=== PATIENT | male | born 1995 | race Caucasian/White ===

== ENCOUNTER → 2019-08-08 | Outpatient (CLI) | payer BC ==
--- NOTE | 2019-08-09 07:48 | US ---
EXAMINATION TYPE: US scrotum with doppler. Grayscale and color Doppler Duplex imaging performed of t he scrotum. DATE OF EXAM: 08/08/2019 COMPARISON: NONE CLINICAL HISTORY: N50.9 Disorder of male genital organ. enlarged left testicle and scrotum is very te nder, h/o hydrocele and fluid removal EXAM MEASUREMENTS: TESTICLES: Right Testicle: 4.5 x 3.0 x 2.7 cm Left Testicle: 3.7 x 2.8 x 2.3 cm EPIDIDYMIS HEAD: Right Epididymis: 0.9 cm Left Epididymis: 1.1 cm Doppler performed to assess for testicular vascularity; good bilateral color flow and waveforms are s een. There is no evidence of testicular torsion. Presence of hydroceles: trace amount around right mid scrotum, larger fluid collection seen lateral to left testicle measuring 2.5 cm. Presence of varicoceles: no Hyperechogenicity is seen midline between the testes in the area the patient's pain. IMPRESSION: 1. Trace right hydrocele and small uncomplicated fluid collection in the subcutaneous tissues left la teral to the testicle that could represent a small seroma measuring approximately 2.5 cm. 2. In the area the patient's pain the subcutaneous tissues at midline are hyperechoic possibly from p hlegmonous changes. No fluid collection to suggest abscess at this location nor edema.
== END ==
LOC: RADUSWWP 16:00
PROVIDERS: ATTEND Family Medicine
DX: R93.89 Abnormal findings on diagnostic imaging of other specified body structures (principal)
CPT/HCPCS: 76870; 93975

== ENCOUNTER → 2020-10-09 | Outpatient (CLI) | payer BC ==
--- NOTE | 2020-10-09 16:22 | US ---
EXAMINATION TYPE: US scrotum with doppler. Grayscale and color Doppler Duplex imaging performed of t javad scrotum. DATE OF EXAM: 10/09/2020 COMPARISON: US 2019 CLINICAL HISTORY: N43.3 hydrocele. Left testicular pain EXAM MEASUREMENTS: TESTICLES: Right Testicle: 4.5 x 2.2 x 2.7 cm Left Testicle: 4.5 x 2.5 x 3.2 cm EPIDIDYMIS HEAD: Right Epididymis: 0.7 x 1.3 x 0.9 cm Left Epididymis: 0.8 x 1.2 x 1.8 cm Doppler performed to assess for testicular vascularity; good bilateral color flow and waveforms are s een. Presence of hydroceles: right 3.0cm, left 3.8cm Presence of varicoceles: no Left epididymal head: 0.7 x 0.8 x 0.9cm hyperechoic area seen Satisfactory blood flow to both testicles. Symmetric flow noted on comparison view. IMPRESSION: No increased or decreased blood flow to left testicle versus the opposite right side. Sma ll bilateral scrotal fluid collections or hydroceles. Persistent oval left scrotal fluid collection l ateral to the testicle though decreased in size from prior.
== END | disposition home or self-care (01) ==
LOC: RADUSWWP 14:28
PROVIDERS: ATTEND Urology
DX: N43.3 Hydrocele, unspecified (principal)
CPT/HCPCS: 76870; 93975

== ENCOUNTER 2025-04-15 03:12 | Emergency (ER) | payer BC ==
[2025-04-15 03:16] VITALS: TEMP 97.5
[2025-04-15 04:17] LABS: Basophils # (A) 0.02 10*3/uL (0.00-0.10); Basophils % (A) 0.2 %; Eosinophils # (A) 0.03 10*3/uL (0.04-0.35); Eosinophils % (A) 0.3 %; HCT 46.4 % (39.6-50.0); HGB 16.1 g/dL (13.0-17.0); Lymphocytes # (A) 0.35 10*3/uL (0.90-5.00); Lymphocytes % (A) 3.2 %; MCH 29.8 pg (27.0-32.0); MCHC 34.7 g/dL (32.0-37.0); MCV 85.8 fL (80.0-97.0); Mean Platelet Volume 9.9 fL (9.5-12.2); Monocytes # (A) 0.58 10*3/uL (0.20-1.00); Monocytes % (A) 5.4 %; Neutrophils # (A) 9.83 10*3/uL (1.80-7.70); Neutrophils % (A) 90.6 %; Platelet Count 252 10*3/uL (140-440); RBC 5.41 10*6/uL (4.40-5.60); RDW 11.9 % (11.5-14.5); WBC 10.84 10*3/uL (4.50-10.00)
--- NOTE | 2025-04-15 04:21 | ED ---
General Adult HPI - General Chief complaint: Nausea/Vomiting/Diarrhea Stated complaint: NVD Time Seen by Provider: 04/15/25 03:18 Source: patient Mode of arrival: ambulatory Limitations: no limitations - History of Present Illness Initial comments: Patient is a previously healthy 30-year-old gentleman presenting today for nausea vomiting and diarrhea. Patient states symptoms have been ongoing for about 1 day. Has had multiple episodes of nonbloody nonbilious emesis and nonbloody, nonmelanotic loose stools. He has not been able to keep down any flu ids and endorses feeling weak and lightheaded. Endorses mild upper abdominal pain. Otherwise denies chest pain. Denies fevers, endorses chills. No prior abdominal surgeries. Denies dysuria or hematuria. Denies testicular pain or swelling. Denies alcohol or marijuana use. - Related Data Allergies Allergy/AdvReac Type Severity Reaction Status Date / Time No Known Allergies Allergy Verified 04/15/25 03:15 Review of Systems ROS Statement: Those systems with pertinent positive or pertinent negative responses have been documented in the HPI. ROS Other: All systems not noted in ROS Statement are negative. Past Medical History Past Medical History: No Reported History History of Any Multi-Drug Resistant Organisms: None Reported Past Surgical History: No Surgical Hx Reported Past Psychological History: No Psychological Hx Reported Smoking Status: Never smoker Past Alcohol Use History: None Reported Past Drug Use History: Marijuana General Exam - General Exam Comments Initial Comments: PE: CONSTITUTIONAL: No apparent distress, somewhat ill-appearing though nontoxic SKIN: Warm, dry, no jaundice, hives or petechiae EYES: Pupils are equally round, extraocular movements intact without nystagmus, clear conjunctiva, non-icteric sclera HENT: Normocephalic, atraumatic, dry mucus membranes, oropharynx clear without exudates NECK: , Full range of motion, normal appearance PULMONARY: Clear to auscultation without wheezes, rhonchi, or rales, normal excursion, no accessory muscle use and no stridor CARDIOVASCULAR: Regular rate, rhythm, normal S1 and S2. No appreciated murmurs, rubs or gallops. Strong radial pulses with intact distal perfusion. No lower extremity edema GASTROINTESTINAL: Soft, active bowel sounds throughout, mild right upper quadrant tenderness to palpation without guarding, negative Palacio sign non- distended, no palpable masses, no rebound or guarding. No hepatosplenomegaly GENITOURINARY: MUSCULOSKELETAL: Extremities have no gross deformity, no edema, redness, or swelling. NEUROLOGIC:_a/o x 3, GCS 15, normal mentation and speech. Moves all extremities x 4 without motor or sensory deficit PSYCHIATRIC:_normal mood and affect, thought process is clear and linear Limitations: no limitations Course Vital Signs 04/15/25 04/15/25 04/15/25 03:13 04:46 06:35 Temperature 97.5 F L Pulse Rate 71 71 84 Respiratory 18 18 16 Rate Blood Pressure 124/79 111/61 122/76 O2 Sat by Pulse 100 97 100 Oximetry 04/15/25 07:53 Temperature Pulse Rate 86 Respiratory 16 Rate Blood Pressure 130/68 O2 Sat by Pulse 98 Oximetry Medical Decision Making - Medical Decision Making Was pt. sent in by a medical professional or institution (, PA, BOOK SALESMAN, urgent care, hospital, or residential...) When possible be specific @ -No Did you speak to anyone other than the patient for history (EMS, parent, family, police, friend...)? What history was obtained from this source @ -No Did you review nursing and triage notes (agree or disagree)? Why? @ -I reviewed and agree with nursing and triage notes-patient is here for vomiting and diarrhea Were old charts reviewed (outside hosp., previous admission, EMS record, old EKG, old radiological studies, urgent care reports/EKG's, residential records)? Report findings @ -Medical records reviewed Differential Diagnosis (chest pain, altered mental status, abdominal pain women, abdominal pain men, vaginal bleeding, weakness, fever, dyspnea, syncope, headache, dizziness, GI bleed, back pain, seizure, CVA, palpatations, mental health, musculoskeletal)? Differential Abdominal Pain Men: Appendicitis, cholecystitis, diverticulosis, pancreatitis, hepatitis, UTI, gastroenteritis, partial bowel obstruction, inflammatory bowel, peptic ulcer disease, this is not meant to be an all-inclusive list EKG interpreted by me (3pts min.). @ -As above X-rays interpreted by me (1pt min.). @Personally reviewed x-ray KUB, I see no evidence of volvulus or obstruction, I agree with radiologist interpretation CT interpreted by me (1pt min.). @ -None done U/S interpreted by me (1pt. min.). @ -None done What testing was considered but not performed or refused? (CT, X-rays, U/S, labs)? Why? @Ultrasound of the right upper quadrant was considered however had a negative Palacio sign, t bili minimally elevated at 1.7, LFT wnl, symptoms ultimately resolved after IV fluids and nausea medication What meds were considered but not given or refused? Why? @ -None Did you discuss the management of the patient with other professionals (professionals i.e. , PA, BOOK SALESMAN, lab, RT, psych nurse, social studies teacher, senior software architect, teacher, procurement officer, mental health case manager)? Give summary @ -No Was smoking cessation discussed for >3mins.? @ -No Was critical care preformed (if so, how long)? @ -No Were there social determinants of health that impacted care today? How? (Homelessness, low income, unemployed, alcoholism, drug addiction, transportation, low edu. Level, literacy, decrease access to med. care, prison, rehab)? @ -No Was there de-escalation of care discussed even if they declined (Discuss DNR or withdrawal of care, Hospice)? @ -No What co-morbidities impacted this encounter? (DM, HTN, Smoking, COPD, CAD, Cancer, CVA, ARF, Chemo, Hep., AIDS, mental health diagnosis, sleep apnea, morbid obesity)? @ -None Was patient admitted / discharged? Hospital course, mention meds given and route, prescriptions, significant lab abnormalities, going to OR and other pertinent info. @ -Discharged-pleasant 30-year-old gentleman presenting today for 1 day of nausea vomiting and diarrhea. Vital signs stable on arrival. On my assessment patient is somewhat ill-appearing though nontoxic. Dry mucous membranes. Abdominal exam is overall benign with minimal right upper quadrant tenderness palpation and a negative Palacio's sign. Differential diagnosis as noted above, however patient's symptoms and exam are highly consistent with gastroenteritis. Will begin with basic labs, IV fluid boluses, and nausea control, will consider additional imaging if symptoms do not improve or significant lab abnormalities. Labs and imaging reviewed. Patient's labs did show mild hyperglycemia with blood glucose of 174 however negative acetone, anion gap of 18, patient did have 4+ ketones in his urine and elevated specific gravity but negative glucose,I suspect these lab abnormalities are more likely secondary to nausea and vomiting and dehydration, and not reflective of new onset diabetes/DKA. On reassessment patient looks much improved, more well-hydrated and his symptoms have improved. Updated patient to findings and anticipated discharge. He was able to tolerate p.o. fortunato tasha and was comfortable with discharge home at this time. Patient was discharged in stable condition. In my medical judgment there is currently no evidence of an immediate life- threatening or surgical condition. Discharge is therefore indicated at this time. Discharge treatment instructions, follow up instructions, and appropriate emergency department return precautions were discussed with the patient and/or medical decision maker. Patient and/or medical decision maker expressed understanding of and agreed with the treatment plan, follow up instructions, and emergency department return precaution. All patient's and/or medical decision maker's questions were answered. The patient was advised that a small risk still exists that a serious condition could develop and was therefore instructed to return to the ED for any changes in symptoms, persistent symptoms, inability to obtain proper follow-up or for any further concerns. Patient received verbal and written instructions for this condition. Undiagnosed new problem with uncertain prognosis? @ -No Drug Therapy requiring intensive monitoring for toxicity (Heparin, Nitro, Insuli n, Cardizem)? @ -No Were any procedures done? @ -No Diagnosis/symptom? @ Nausea, vomiting and diarrhea, dehydration Acute, or Chronic, or Acute on Chronic? @Acute Uncomplicated (without systemic symptoms) or Complicated (systemic symptoms)? @ complicated Side effects of treatment? @ -No Exacerbation, Progression, or Severe Exacerbation? @ -No Poses a threat to life or bodily function? How? (Chest pain, [place], [place], pneumonia, PE, COPD, DKA, ARF, appy, cholecystitis, CVA, Diverticulitis, Homicidal, Suicidal, threat to staff... and all critical care pts) @ -No - Lab Data Result diagrams: 04/15/25 04:13 04/15/25 04:13 Lab Results 04/15/25 04/15/25 04/15/25 Range/Units 04:13 04:13 04:13 WBC 10.84 H (4.50-10.00) 10*3/uL RBC 5.41 (4.40-5.60) 10*6/uL Hgb 16.1 (13.0-17.0) g/dL Hct 46.4 (39.6-50.0) % MCV 85.8 (80.0-97.0) fL MCH 29.8 (27.0-32.0) pg MCHC 34.7 (32.0-37.0) g/dL Plt Count 252 (140-440) 10*3/uL MPV 9.9 (9.5-12.2) fL Immature Gran % (Auto) 0.3 % Neutrophils % 90.6 % Lymphocytes % 3.2 % Monocytes % 5.4 % Eosinophils % 0.3 % Basophils % 0.2 % Immature Gran # 0.03 (0.00-0.04) 10*3/uL Neutrophils # 9.83 H (1.80-7.70) 10*3/uL Lymphocytes # 0.35 L (0.90-5.00) 10*3/uL Monocytes # 0.58 (0.20-1.00) 10*3/uL Eosinophils # 0.03 L (0.04-0.35) 10*3/uL Basophils # 0.02 (0.00-0.10) 10*3/uL Sodium 138 (137-145) mmol/L Potassium 4.8 (3.5-5.1) mmol/L Chloride 104 (98-107) mmol/L Carbon Dioxide 16 L (22-30) mmol/L Anion Gap 18 mmol/L BUN 23 H (9-20) mg/dL Creatinine 0.94 (0.66-1.25) mg/dL Est GFR (CKD-EPI)AfAm >90 (>60 ml/min/1.73 sqM) Est GFR (CKD-EPI)NonAf >90 (>60 ml/min/1.73 sqM) Glucose 174 H (74-99) mg/dL Calcium 10.2 (8.4-10.2) mg/dL Total Bilirubin 1.7 H (0.2-1.3) mg/dL AST 30 (17-59) U/L ALT 22 (4-49) U/L Alkaline Phosphatase 55 (38-126) U/L Total Protein 9.1 H (6.3-8.2) g/dL Albumin 5.3 H (3.5-5.0) g/dL Lipase 157 (23-300) U/L Urine Color Urine Appearance (Clear) Urine pH (5.0-8.0) Ur Specific [place] (1.001-1.035) Urine Protein (Negative) Urine Glucose (UA) (Negative) Urine Ketones (Negative) Urine Blood (Negative) Urine Nitrite (Negative) Urine Bilirubin (Negative) Urine Urobilinogen (<2.0) mg/dL Ur Leukocyte Esterase (Negative) Acetone, Qual Negative (Negative) Influenza Type A (PCR) (Not Detectd) Influenza Type B (PCR) (Not Detectd) RSV (PCR) (Not Detectd) SARS-CoV-2 (PCR) (Not Detectd) 04/15/25 04/15/25 Range/Units 04:17 05:49 WBC (4.50-10.00) 10*3/uL RBC (4.40-5.60) 10*6/uL Hgb (13.0-17.0) g/dL Hct (39.6-50.0) % MCV (80.0-97.0) fL MCH (27.0-32.0) pg MCHC (32.0-37.0) g/dL Plt Count (140-440) 10*3/uL MPV (9.5-12.2) fL Immature Gran % (Auto) % Neutrophils % % Lymphocytes % % Monocytes % % Eosinophils % % Basophils % % Immature Gran # (0.00-0.04) 10*3/uL Neutrophils # (1.80-7.70) 10*3/uL Lymphocytes # (0.90-5.00) 10*3/uL Monocytes # (0.20-1.00) 10*3/uL Eosinophils # (0.04-0.35) 10*3/uL Basophils # (0.00-0.10) 10*3/uL Sodium (137-145) mmol/L Potassium (3.5-5.1) mmol/L Chloride (98-107) mmol/L Carbon Dioxide (22-30) mmol/L Anion Gap mmol/L BUN (9-20) mg/dL Creatinine (0.66-1.25) mg/dL Est GFR (CKD-EPI)AfAm (>60 ml/min/1.73 sqM) Est GFR (CKD-EPI)NonAf (>60 ml/min/1.73 sqM) Glucose (74-99) mg/dL Calcium (8.4-10.2) mg/dL Total Bilirubin (0.2-1.3) mg/dL AST (17-59) U/L ALT (4-49) U/L Alkaline Phosphatase (38-126) U/L Total Protein (6.3-8.2) g/dL Albumin (3.5-5.0) g/dL Lipase (23-300) U/L Urine Color Yellow Urine Appearance Clear (Clear) Urine pH 5.5 (5.0-8.0) Ur Specific [place] 1.036 H (1.001-1.035) Urine Protein Trace H (Negative) Urine Glucose (UA) Negative (Negative) Urine Ketones 4+ H (Negative) Urine Blood Negative (Negative) Urine Nitrite Negative (Negative) Urine Bilirubin Negative (Negative) Urine Urobilinogen <2.0 (<2.0) mg/dL Ur Leukocyte Esterase Negative (Negative) Acetone, Qual (Negative) Influenza Type A (PCR) Not Detected (Not Detectd) Influenza Type B (PCR) Not Detected (Not Detectd) RSV (PCR) Not Detected (Not Detectd) SARS-CoV-2 (PCR) Not Detected (Not Detectd) Disposition Clinical Impression: Dehydration, Nausea vomiting and diarrhea Disposition: HOME SELF-CARE Condition: Stable Instructions (If sedation given, give patient instructions): Acute Nausea and Vomiting (ED), Acute Diarrhea (ED) Additional Instructions: Every disease is a spectrum and a small chance still exists that a serious condition could develop, for this reason, please monitor yourself closely for new, changing or worsening symptoms, symptoms that persist beyond [48 hours], blood in your vomit or stool, [fever], inability to tolerate/keep down fluids or your medications, inability to follow up with outpatient providers as instructed and should you experience these symptoms or should you have any further concerns for your wellbeing please return to the ED or call 911 immediately. Please drink plenty of clear fluids. Today maintain a clear liquid diet, and you may progress your diet as your symptoms improve. PLEASE call your primary care physician as soon as possible to arrange / discuss plan for followup appointment. Appointment in the next 1-3 days is strongly encouraged if possible. PLEASE let us know here before you leave if there is anything further we can do to be of any assistance. Take care and feel Better! Is patient prescribed a controlled substance at d/c from ED?: No Referrals: Beverly Amanda MD [Primary Care Provider] - 1-2 days
[2025-04-15] MEDS: SODIUM CHLORIDE 0.9% 2,000 ML IV STA (04:32)
[2025-04-15] MEDS: ONDANSETRON 4 MG/2 ML VIAL IVP STA (04:33)
[2025-04-15] MEDS: diphenhydrAMINE 50 MG/ML 1 ML VIAL IVP STA (04:35)
[2025-04-15] MEDS: METOCLOPRAMIDE 5 MG/ML 2 ML VIAL IVP STA (04:36)
[2025-04-15 04:42] LABS: ALT 22 U/L (4-49); AST 30 U/L (17-59); African American GFR (CKD) >90 (>60 ml/min/1.73 sqM); Albumin 5.3 g/dL (3.5-5.0); Alkaline Phosphatase 55 U/L (38-126); Anion Gap 18 mmol/L; Blood Urea Nitrogen 23 mg/dL (9-20); Calcium 10.2 mg/dL (8.4-10.2); Carbon Dioxide 16 mmol/L (22-30); Chloride 104 mmol/L (98-107); Glucose 174 mg/dL (74-99); Lipase 157 U/L (23-300); Non-African American GFR(CKD) >90 (>60 ml/min/1.73 sqM); Potassium 4.8 mmol/L (3.5-5.1); Sodium 138 mmol/L (137-145); Total Bilirubin 1.7 mg/dL (0.2-1.3); Total Protein 9.1 g/dL (6.3-8.2)
[2025-04-15 05:11] LABS: Influenza A Not Detected (Not Detectd); Influenza B Not Detected (Not Detectd); RSV Not Detected (Not Detectd)
[2025-04-15] MEDS: SODIUM CHLORIDE 0.9% 1,000 ML IV ONE (05:51)
[2025-04-15 06:05] LABS: Appearance,Urine Clear (Clear); Bilirubin,Urine Negative (Negative); Blood,Urine Negative (Negative); Color,Urine Yellow; Glucose,Urine (UA) Negative (Negative); Ketones,Urine 4+ (Negative); Leukocyte Esterase,Urine Negative (Negative); Nitrite,Urine Negative (Negative); PH, Urine 5.5 (5.0-8.0); Protein,Urine Trace (Negative); Specific Gravity,Urine 1.036 (1.001-1.035); Urobilinogen,Urine <2.0 mg/dL (<2.0)
[2025-04-15 06:36] VITALS: RESP 16
--- NOTE | 2025-04-15 06:45 | XR ---
KUB. CLINICAL INDICATION: Male, 30 years old with history of pain, Abdominal pain. COMPARISON: None. TECHNIQUE: 2 upright views of the abdomen were obtained. FINDINGS: The lung bases are clear. There is no free intraperitoneal air beneath the diaphragm. The bowel gas pattern is nonspecific and there is no evidence of obstruction. No suspicious abdominal or pelvic calcifications are seen. Healed fracture involving the right pubic bone or fibrous dysplasia. IMPRESSION: Nonspecific abdomen without evidence of free air or obstruction. There is no fecal impaction. There i s minimal stool within the colon. [facility], , 04/15/2025 6:43 AM
[2025-04-15] MEDS: ONDANSETRON 4 MG ODT STARTER PACK 2 TAB BTL PO STA (07:44)
[2025-04-15 07:53] VITALS: BP 130/68; PULSE 86
== END 2025-04-15 07:53 | disposition home or self-care (01) ==
LOC: EC 03:12
DX: E86.0 Dehydration (principal); R11.2 Nausea with vomiting, unspecified; R19.7 Diarrhea, unspecified; Z11.52 Encounter for screening for COVID-19
CPT/HCPCS: 36415; 80053; 82009; 83690; 85025; 81003; 87636; 74018; 99284; 96374; 96375 ×2; 96361 ×2; J1200; J2765; J2405; S0119